=== PATIENT | female | born 1965 | race Caucasian/White ===

== ENCOUNTER → 2020-12-10 | Outpatient (CLI) | payer BC ==
[~2020-12-10] VITALS: Ht 170.2 cm; Wt 49.9 kg
[~2020-12-10] MED LIST: ALPRAZOLAM1 MG PO; BACLOFEN20 MG PO; KLONOPIN1 MG PO; LYRICA 50 MG50 MG PO; ROBAXIN 750 MG750 MG PO; SUBOXONE 8 MG-1 EAC3 SUBLING
--- NOTE | ~2020-12-10 | HPC ---
[facility] [place] [address] PAIN MANAGEMENT CONSULTATION Name: REGINALDO FRENCH Room #: REG MISAEL Chan#: [id number] Admission: 12/10/20 Attend Phys: Asim Aragon DO Discharge: Date of : 61 Report #: [id number] THIS REPORT FOR: cc: Rajani Dominguez MD, Jayne Lora MD Johnson, James E. DO ~ DATE OF SERVICE: 12/10/2020 CHIEF COMPLAINT: Right low back pain. HISTORY OF PRESENT ILLNESS: As you know, the patient is a 55-year-old female with longstanding history of right low back pain symptoms, which radiate from the iliac crest towards the ribs on the right with radiation all the way out to the tip of the 12th rib. She indicates symptoms began spontaneously, no injury or trauma. She has been evaluated by multiple physicians and there has been no source or reason for her symptoms that have been found to date. She states her pain began 02/28/2020 through 03/01/2020. She denies injury or trauma. She has sought evaluation through multiple services, the most recent seen Neurosurgery in regards to surgical options. It was determined at that time that no surgical options would be present and the patient was then referred on to our clinic to discuss options for treatment for more conservative therapy. The patient reports that she has sought treatment with acupuncture, chiropractic manipulation, heat and cold compresses, lidocaine patches and even injections, which provided no improvement. She states the pain is exacerbated with deep breaths as well as some with eating. She also notes symptoms with coughing. The patient indicates she has lost approximately 40 pounds since this all began as she feels it is difficult to eat and maintain analgesic benefit. She has been referred to our service to discuss interventional treatment options to address her ongoing symptoms. The patient indicates today her pain is continuous and constant, describes the pain as shooting, cramping, sharp, stabbing and tender, places current pain score at 10/10, daily average at 10/10, worst pain has been 10/10. The patient states her pain is exacerbated with moving, coughing and deep breathing. Nothing tends to improve pain. She has been referred to our service to discuss interventional treatment options. PAST MEDICAL HISTORY: 1. Hypertension. 2. Depression. 3. Anxiety. 4. Gastritis. 5. Chronic pain syndrome. 6. Chronic obstructive pulmonary disease. 7. Carpal tunnel. 8. Opioid addiction. [address] [address] PAIN MANAGEMENT CONSULTATION Name: REGINALDO FRENCH Room #: REG [facility]#: [id number] Admission: 12/10/20 Attend Phys: Asim Aragon DO Discharge: Date of : 61 Report #: [id number] PAST SURGICAL HISTORY: 1. Breast augmentation. 2. Hysterectomy. 3. C6-C7 fusion. 4. Excision of breast implants. 5. History of laparotomy. SOCIAL HISTORY: The patient reports she is a current everyday smoker, half pack tobacco per day, has done so for greater than 37 years. Denies IV or illicit drug use. She denies any alcohol use. 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 She is not receiving disability income. She is not in litigation in regards to pain. She is accompanied by a family member present in room today. REVIEW OF SYSTEMS: Positive for significant weight change, 40 pounds in less than 6 months, decreased appetite, fatigue, weakness, headaches, wearing corrective eyewear, shortness of breath with walking or lying flat, loss of appetite, changes in bowel movement constipation interspersed with diarrhea, abdominal pain, changes in skin color and texture, hair and nail texture changes, frequent and recurrent headaches, numbness and tingling sensations, nervousness, depression, slow to heal after cuts. All other review of systems negative per 12-point review of systems other than those listed in history of present illness. Pain impact score 70 of 70, complete interference of daily activity secondary to pain. ALLERGIES: PERCOCET. CURRENT MEDICATIONS: Methocarbamol 750 mg 3 times a day, buprenorphine/naloxone 8/2 mg 1 b.i.d., clonazepam 1 mg 3 times a day, alprazolam 1 mg once a day. IMAGING: No imaging available. PHYSICAL EXAMINATION: VITAL SIGNS: Blood pressure 147/86, pulse is 64, respiratory rate 14 and unlabored. The patient is 100% on room air. Height 5 feet 7 inches tall, weight 110 pounds, BMI calculated 17.2. GENERAL: Well-developed, well-nourished, well-hydrated, thin, 55-year-old female appearing her stated age, placing current pain score 10/10. HEENT: Normocephalic, atraumatic. Pupils are equal, round and reactive. Extraocular muscles are intact. The patient is wearing a mask in compliance with COVID-19 regulations. LUNGS: Clear, though there is a prolonged expiratory phase. CARDIOVASCULAR: Regular. No appreciable gallop, no rub. ABDOMEN: Soft, scaphoid, but has skin color changes consistent with first degree davila. [facility] [address] [place] [address] PAIN MANAGEMENT CONSULTATION Name: REGINALDO FRENCH Room #: REG [facility]#: [id number] Admission: 12/10/20 Attend Phys: Asim Aragon DO Discharge: Date of : 61 Report #: [id number] EXTREMITIES: Show no clubbing, no cyanosis, and no edema. MUSCULOSKELETAL: The patient has palpatory tenderness over the iliocostalis muscles on the right, negative left. There are multiple tender points, no specific trigger points. Deep inhalation and exhalation causes intensification of pain along the distribution of the iliocostalis muscle on the right. There is palpatory tenderness at the rib edges at 11 and 12 on the right, negative left. There is exquisite tenderness along the ridge of the iliac crest consistent with the insertion of the iliocostalis muscle. There is significant pelvic unleveling with near inch change when comparing the ASIS on the left to the ASIS on the right. There is leg length discrepancy of 1 inch as well noted in physical examination. Seated straight leg raising is negative. Supine straight leg raising is negative. Saulo's test is negative. Modified Gaenslen's positive for axial low back pain. Ankle clonus is negative. Babinski is negative. She is intact to light touch from L1 through S2 dermatomes. Deep tendon reflexes equal and symmetrical, but diminished bilaterally at patella and Achilles. There is SI joint tenderness noted on physical exam on the right. ASSESSMENT: 1. Severe pelvic unleveling. 2. Myofascial pain. 3. Sacroiliac dysfunction. 4. Chronic intractable pain. PLAN: 1. Based on today's physical exam and the history the patient provides, the descriptors the patient uses in regards to pain as well as location of symptoms, it would appear that her pelvic unleveling noted on physical exam has caused the change in the myofascial planes of the lumbar spine. She is exquisitely tender to palpation over the iliocostalis muscle on the right. Deep inhalation and exhalation does cause intensification of pain consistent with the iliocostalis. There is no neuropathic component of the patient's symptoms. There is no radiation of symptoms in a dermatomal pattern. Her symptoms do not radiate on a costal nerve. The pelvic unleveling is quite significant, her gait is antalgic and somewhat shuffling. She shows a consistent pattern of symptoms directly over the distribution of the myofascial group of the iliocostalis. We discussed with the patient treatment options, the following was suggested. 1. We suggest strongly the patient undergo pelvic manipulation of the bilateral pelvis with trying to correct for leg length discrepancies. It does not appear based on the examination of the lumbar spine that she has significant scoliosis that has led to this pelvic unleveling. This may be a traumatic unleveling though the patient cannot remember a specific incident, but does remember that the symptoms occurred acutely. The findings on physical exam certainly would indicate that the unleveling had occurred fairly rapidly as she is not compensated for this curvature to date and she is somewhat unbalanced. With the [address] [address] PAIN MANAGEMENT CONSULTATION Name: REGINALDO FRENCH Room #: REG Srinivas Chan#: [id number] Admission: 12/10/20 Attend Phys: Asim Aragon DO Discharge: Date of : 61 Report #: [id number] pelvic manipulation, I think the patient will see good improvement. I would recommend at least 6-8 sessions to address this issue. This should improve the patient's symptoms considerably. Once we have the unleveling corrected to whatever degree we can, I think her symptoms will improve and thus we will be able to address more of the myofascial symptoms she has been experiencing. 2. We have recommended discontinuation of methocarbamol, in place, we will be using baclofen. I have given 20 mg dose. I advised the patient to take no more than 3 times a day. She is to start out with half tablet and then increase to a full tab if necessary. She was given #60 tablets on a p.r.n. basis. The patient will watch for side effects of sleepiness, disorientation, confusion, mental slowing with use of medication. 3. The patient was started on Lyrica to help with any neuropathic component to the symptoms of her neck pain that she has been experiencing that she uses descriptors of numbness and tingling. It could certainly help with some of the back symptoms she has been experiencing as well. We will start at 50 mg dose 1 tab p.o. at bedtime for 7 nights, then increase to 2 tabs p.o. at bedtime for 7 nights, then 3 tabs p.o. at bedtime. I have given the patient enough to increase the titration to the 3 times a day dose. I did advise the patient any time during the titration, she notes improvement in symptoms, stabilize at that dose, no further escalation. No improvement in symptoms, no side effects, continue the titration as directed. 4. We plan to see the patient back in followup visit for possible trigger point injections into the iliocostalis muscles if necessary. We are hopeful to avoid any interventional treatments if we can by treating her pelvic unleveling initially with physical therapy and manipulation. Interventional treatments could be certainly used if the myofascial symptoms remain. 5. We wish to thank nurse practitioner, Kristina Herman for the opportunity to see the patient in consultation. We will keep you apprised of response to treatment. Again, we wish to thank you for the opportunity to see this patient in consultation. By: 1711 [id number] Asim Aragon DO /henny
[2020-12-10 08:47] VITALS: BP 147/86
--- NOTE | 2020-12-10 09:11 | NUR ---
Pain Clinic Assessment: 1. History of Osteoarthritis: Not Applicable History of Rheumatoid Arthritis: Not Applicable 2. Height: 5 ft. 7 in. 170.2 cm. Weight: 110.0 lb. oz. 49.896 kg. Patient's BMI: 17.2 3. Vital Signs: BP: 147/86 Pulse: 64 Resp: 14 Temp: 02 Sat: 100 ECG Mon: 4. Pain Intensity: 10 5. Fall Risk: Dizziness: N Needs help standing or walking: N Fallen in the last 3 months: N Fall risk comments: 6. Patient on Blood Thinner: None 7. History of Hypertension: N 8. Opioid Therapy greater than 6 weeks: Y Opiate Contract Signed: 9. Risk Assessment Tool Provided: 7-mod 10. Functional Assessment Tool: 70/70 11. Recreational Drug Use: Never Drug Type: Tobacco Use: Current Every Day Smoker Tobacco Type: Cigarettes Amount or Packs/day: 1/2 PACK How Many Years: 37 Alcohol Use: No Frequency: Quant:
== END ==
LOC: PAIN 12-09 13:16
PROVIDERS: ATTEND Anesthesiology Pain Medicine
DX: G89.29 Other chronic pain (principal); M79.18 Myalgia, other site; M54.5 Low back pain; I10 Essential (primary) hypertension; F32.9 Major depressive disorder, single episode, unspecified; F41.8 Other specified anxiety disorders; K29.70 Gastritis, unspecified, without bleeding; G47.33 Obstructive sleep apnea (adult) (pediatric); Z90.710 Acquired absence of both cervix and uterus; Z98.1 Arthrodesis status; Z98.890 Other specified postprocedural states; Z79.891 Long term (current) use of opiate analgesic; Z79.899 Other long term (current) drug therapy

== ENCOUNTER → 2020-12-24 | Outpatient (CLI) | payer BC ==
[~2020-12-24] VITALS: Ht 170.2 cm; Wt 50.0 kg
[2020-12-24 12:44] VITALS: BP 165/90
--- NOTE | 2020-12-24 13:05 | NUR ---
Pain Clinic Assessment: 1. History of Osteoarthritis: Not Applicable History of Rheumatoid Arthritis: Not Applicable 2. Height: 5 ft. 7 in. 170.2 cm. Weight: 110.2 lb. oz. 49.986 kg. Patient's BMI: 17.3 3. Vital Signs: BP: 165/90 Pulse: 63 Resp: 14 Temp: 02 Sat: 100 ECG Mon: 4. Pain Intensity: 10 5. Fall Risk: Dizziness: Y Needs help standing or walking: N Fallen in the last 3 months: N Fall risk comments: 6. Patient on Blood Thinner: None 7. History of Hypertension: N 8. Opioid Therapy greater than 6 weeks: Y Opiate Contract Signed: 9. Risk Assessment Tool Provided: 7-mod 10. Functional Assessment Tool: 70/70 11. Recreational Drug Use: Never Drug Type: Tobacco Use: Current Every Day Smoker Tobacco Type: Cigarettes Amount or Packs/day: < 1/2 PACK How Many Years: 35 Alcohol Use: Yes Frequency: Special Occasions Quant: 1
--- NOTE | 2020-12-27 14:10 | HPC ---
[facility] [place] [address] PAIN MANAGEMENT CONSULTATION Name: REGINALDO FRENCH Room #: REG MISAEL Denny.#: [id number] Admission: 12/24/20 Attend Phys: Asim Aragon DO Discharge: Date of : 61 Report #: [id number] THIS REPORT FOR: cc: Rajani Dominguez MD, Jayne Lora MD Johnson, James E. DO ~ DATE OF SERVICE: 12/24/2020 CHIEF COMPLAINT: Low back pain. HISTORY OF PRESENT ILLNESS: As you know, the patient is a 55-year-old female with longstanding history of chronic right intermittent pain of the back and rib area. She has been undergoing treatment with a local chiropractic service which has provided some benefit. She returns today in followup visit with pain level of up to 10/10, exacerbated with certain activities. She was established today's appointment to undergo epidural injection under fluoroscopic guidance per the request of her neurosurgery team to determine if her symptoms will improve with such treatment. She reports no changes in medical history since her last visit. No specific injury or trauma. She is returning today in followup visit with pain level 10/10 to undergo epidural injection per the request of her neurosurgery team. ALLERGIES: PERCOCET. CURRENT MEDICATIONS: Methocarbamol, buprenorphine/naloxone, clonazepam and alprazolam. SOCIAL HISTORY: The patient is a current every day smoker, half pack tobacco per day, has done so for 37-1/4 years. Denies IV or illicit drug use. Denies any chronic alcohol use. She is unaccompanied at today's visit. IMAGING: No new imaging available. PHYSICAL EXAMINATION: VITAL SIGNS: Blood pressure 165/90, pulse 63, respiratory rate 14 and unlabored. The patient is 100% on room air. Height 5 feet 7 inches tall, weight 110.2 pounds, BMI calculated 17.3. GENERAL: Well-developed, well-nourished, well-hydrated, thin, 55-year-old female, appears stated age, placing current pain score 10/10. HEENT: Normocephalic, atraumatic. The patient is wearing a mask in compliance with COVID-19 regulations and restrictions. EXTREMITIES: Show no clubbing, no cyanosis, and no edema. MUSCULOSKELETAL: The patient remains tender to palpation over the iliocostalis muscles on the right, negative left. Multiple tender points, no specific trigger points. Seated straight leg raising is negative. Supine straight leg raising is negative. Saulo's test is negative. Modified Gaenslen's positive [address] [address] PAIN MANAGEMENT CONSULTATION Name: REGINALDO FRENCH Room #: [facility]#: [id number] Admission: 12/24/20 Attend Phys: Asim Aragon DO Discharge: Date of : 61 Report #: [id number] for axial low back pain. Ankle clonus is negative. ASSESSMENT: 1. Chronic back pain. 2. Severe pelvic unleveling. 3. Myofascial pain. 4. Chronic intractable pain. PLAN: 1. The patient returns today in followup visit requesting to undergo injection in the lumbar spine to address suspected lumbar radiculopathy. The patient was referred to our clinic by the Neurosurgery team to undergo this procedure to determine if her symptoms will improve with such treatment. She has trialled conservative treatment utilizing chiropractic manipulation for her pelvic unleveling, but has noted no significant pain improvement. She returns to undergo lumbar epidural injection under fluoroscopic guidance per the request of her Neurosurgery team. The patient has been advised risks and benefits of a lumbar epidural injection. These risks include but are not necessarily limited to bleeding, bruising, infection, worsening pain, no relief of pain, also risk of temporary or permanent muscle weakness, temporary or permanent nerve damage, possible paralysis, post-dural puncture, headache and . The patient states understood and wished to proceed. 2. No medication changes made at today's visit. The patient will continue current medical therapy as prior prescribed. 3. We plan to see the patient back in followup visit on an as needed basis for possible next in the series of injections. We will keep you apprised of response to treatment. We are hopeful the patient will see good and prolonged benefit with today's procedure. PROCEDURE NOTE DESCRIPTION OF PROCEDURE: T12-L1 interlaminar epidural steroid injection under fluoroscopic guidance. After obtaining written consent, the patient was taken back to fluoroscopy suite, placed in prone position with pillow under abdomen to decrease lumbar lordosis. The skin overlying the thoracolumbar area was prepped and draped in aseptic fashion. The T12-L1 interspace was identified by AP fluoroscopy. Skin and subcutaneous tissue overlying target site of injection anesthetized with 3 mL of 1% lidocaine. A 20-gauge 3-1/2 inch Tuohy needle advanced under fluoroscopic guidance towards the epidural space using a parasagittal approach. Epidural space identified using loss of resistance to air technique. After negative aspiration for heme [facility] [address] [place] [address] PAIN MANAGEMENT CONSULTATION Name: REGINALDO FRENCH Room #: JAMEL Baldwin#: [id number] Admission: 12/24/20 Attend Phys: Asim Aragon DO Discharge: Date of : 61 Report #: [id number] or cerebrospinal fluid, 1 mL of Isovue injected. A thoracolumbar epidurogram was confirmed using both AP and lateral fluoroscopy. After negative aspiration for heme or cerebrospinal fluid, 5 mL of a solution containing 2 mL 40 mg per mL, 80 mg total triamcinolone along with 3 mL of lidocaine 1% injected slowly. Needle retracted fdc, flushed with 1 mL of 1% lidocaine and removed. Sterile bandage placed over injection site. No new motor deficits present in the lower extremities following procedure. The patient tolerated procedure well, carefully escorted to recovery room in stable condition. No apparent complications. After meeting discharge criteria, the patient discharged home. <ELECTRONICALLY SIGNED> By: Asim Aragon DO 12/27/20 1410 1233 1721 Asim Aragon DO /nt
== END | disposition home or self-care (01) ==
LOC: PAIN 06:54
PROVIDERS: ATTEND Anesthesiology Pain Medicine
DX: M54.5 Low back pain (principal); G89.29 Other chronic pain; M79.18 Myalgia, other site; F17.210 Nicotine dependence, cigarettes, uncomplicated; Z98.890 Other specified postprocedural states; Z79.899 Other long term (current) drug therapy; Z88.8 Allergy status to other drugs, medicaments and biological substances